=== PATIENT | male | born 1965 | race Hispanic/Latino ===

== ENCOUNTER 2016-11-16 02:47 | Observation (INO) | payer OTHER ==
[2016-11-16 02:55] VITALS: BMI 29.0
[2016-11-16] MEDS: Dextrose 5%/0.9% NS 1,000 ML IV SCH ×2 (03:15→04:15)
[2016-11-16 03:18] LABS: BASO % 0.3 % (0.0-2.0); EOS # 0.1 K/uL (0.0-0.7); EOS % 0.7 % (0.0-4.0); HEMATOCRIT 40.4 % (35.0-51.0); LYMPH # 2.5 K/uL (1.0-4.3); LYMPH % 17.7 % (20.0-40.0); MEAN CORPUSCULAR HGB CONC 34.3 g/dL (33.0-37.0); MEAN PLATELET VOLUME 8.1 fl (7.2-11.7); MONO # 0.8 K/uL (0.0-0.8); MONO % 5.6 % (0.0-10.0); NEUT # 10.6 K/uL (1.8-7.0); NEUT % 75.7 % (50.0-75.0); NRBC % 0.1 % (0.0-0.0); RED CELL DISTRIBUTION WIDTH 13.6 % (11.5-14.5)
[2016-11-16 03:21] LABS: MEAN CELL VOLUME 90.5 fl (80.0-94.0)
[2016-11-16 03:22] LABS: CHLORIDE 102 mmol/L (98-107); POTASSIUM 2.9 MMOL/L (3.6-5.0); SODIUM 138 mmol/l (132-148)
[2016-11-16 03:25] LABS: BLOOD UREA NITROGEN 16 mg/dl (9-20); CARBON DIOXIDE 20 mmol/L (22-30); GFR AFRICAN-AMERICAN > 60; GLUCOSE,RANDOM 196 mg/dL (75-110)
[2016-11-16 03:26] LABS: CALCIUM 8.8 mg/dL (8.4-10.2)
--- NOTE | 2016-11-16 03:29 | ED PDOC ---
HPI: Altered Mental Status Time Seen by Provider: 11/16/16 02:54 Chief Complaint (Nursing): Altered Mental Status Chief Complaint (Provider): Altered Mental Status History Per: EMS, Family History/Exam Limitations: Clinical Condition (Hypoglycemia) Onset/Duration Of Symptoms: Hrs Onset Of Symptoms: <3 Hours Current Symptoms Are (Timing): Better Description Of Symptoms: Confused Usual Baseline: Alert Oriented Exacerbating Factor(s): Diabetic (Requires Insulin) Associated Symptoms: Confused, Agitated, Combative Additional Complaint(s): 51 y/o male patient presenting to the ED with hypoglycemia. Patient was brought in under solvent mood due to being sedated with 5mg of Versed and given D50 through IV. So no past medical history is able to be obtained directly from the patient due to the sedation caveat. Patient's reports that the patient is an insulin taking diabetic that takes R Insulin (20 units) at night. However the patient only had a banana and orange juice with no other food. The patient' s states she was concerned because he was sweating and acting strangely. EMS was called and upon testing his sugar they report it was in the 20's in addition to the patient being combative with EMS requiring sedation. Past Medical History Reviewed: Historical Data, Nursing Documentation, Vital Signs Vital Signs: Last Vital Signs Temp 99 F 11/16/16 03:09 Pulse 95 H 11/16/16 02:56 Resp 18 11/16/16 02:56 BP 126/56 L 11/16/16 02:56 Pulse Ox 91 L 11/16/16 02:56 - Medical History PMH: Diabetes ((+)Insulin taking diabetic) - Family History Family History: States: Unknown Family Hx - Home Medications Home Medications: Ambulatory Orders Medication Instructions Recorded Potassium Chloride [K-Dur 20] 20 meq PO DAILY #30 tab 11/16/16 - Allergies Allergies/Adverse Reactions: Allergies Allergy/AdvReac Type Severity Reaction Status Date / Time No Known Allergies Allergy Verified 11/16/16 02:53 Review of Systems ROS Statement: Except As Marked, All Systems Reviewed And Found Negative Review Of Systems: ROS cannot be obtained secondary to pt's inabilty to answer questions. Neurological: Positive for: Altered Mental Status Physical Exam - Reviewed Nursing Documentation Reviewed: Yes Vital Signs Reviewed: Yes - Physical Exam Appears: Positive for: Non-toxic, No Acute Distress Head Exam: Positive for: ATRAUMATIC, NORMAL INSPECTION, NORMOCEPHALIC Skin: Positive for: Normal Color, Warm, Dry Cardiovascular/Chest: Positive for: Regular Rate, Rhythm. Negative for: Murmur Respiratory: Positive for: Other ((+)Snoring). Negative for: Wheezing, Respiratory Distress Extremity: Positive for: Normal ROM Neurologic/Psych: Positive for: Alert, Oriented. Negative for: Motor/Sensory Deficits - Laboratory Results Result Diagrams: 11/16/16 03:11 11/16/16 03:11 - ECG ECG Rhythm: Positive for: Sinus Rhythm. Negative for: ST/T Changes Rate: 79 O2 Sat by Pulse Oximetry: 91 (RA) Pulse Ox Interpretation: Normal Medical Decision Making Medical Decision Making: Time: 0300 Initial impression: Resolved Hypoglycemic status; post chemical sedation. Initial plan: --BMP --DEXTROSE 5%/0.9% NS 1,000ML IV 1,000MLS/HR 0540-Discharge Instructions: Re-evaluation. Patient feels better and is back to original baseline. Discussed results and plan with patient who expresses understanding. Counseling was provided regarding the diagnosis and prognosis. All questions answered and there is agreement with the plan to discharge home with instructions. Patient stable for discharge. Return if symptoms persist or worsen. Scribe Attestation: Documented by Humera Walker, acting as a scribe for Mat Trejo MD. Scribe Attestation: All medical record entries made by the Scribe were at my direction and personally dictated by me. I have reviewed the chart and agree that the record accurately reflects my personal performance of the history, physical exam, medical decision making, and the department course for this patient. I have also personally directed, reviewed, and agree with the discharge instructions and disposition. Disposition - Clinical Impression Clinical Impression: Hypoglycemia, Hypokalemia - Patient ED Disposition Is Patient to be Admitted: No - Disposition Disposition: Routine/Home Disposition Time: 05:40 Condition: STABLE
[2016-11-16] MEDS: Potassium CL 10 MEQ/50 ML 50 ML IVPB ONE ×2 (04:22→04:25)
[2016-11-16] MEDS ORDERED: Potassium CL 10mEq/100ml 100 ML IVPB ONE (04:30)
[2016-11-16 05:03] VITALS: BP 131/72; RESP 16; TEMP 98.6
[2016-11-16 05:44] VITALS: PULSE 79; O2SAT 91
== END 2016-11-16 05:46 | disposition home or self-care (01) ==
LOC: H.ER 02:47 → H.EROBSV 03:10
PROVIDERS: ADMIT Emergency Medicine; ATTEND Emergency Medicine
DX: E11.649 Type 2 diabetes mellitus with hypoglycemia without coma (principal); E87.6 Hypokalemia